=== PATIENT | female | born 1945 | race Caucasian/White ===

== ENCOUNTER 2022-10-30 17:55 | Emergency (ER) | payer MEDICARE ==
[~2022-10-30] VITALS: Ht 157.5 cm; Wt 789.3 kg
[2022-10-30 17:55] VITALS: BP 140/76
[2022-10-30] MEDS ORDERED: TORADOL IM STA (18:15)
[2022-10-30] MEDS ORDERED: TORADOL ONE (18:18)
--- NOTE | 2022-10-30 19:01 | DIREP ---
PROCEDURE:XRAY FOREARM 2 VWS-LT COMPARISON:None. INDICATIONS:pain after trauma FINDINGS: BONES:No acute fracture. The proximal portions of the radius and ulna are not seen in a true AP projection on the attempted AP image of the right forearm. There is seen at and oblique angle. JOINTS:No dislocation. 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 SOFT TISSUES:Severe soft tissue swelling over the dorsal medial aspect of the left hand, wrist and distal forearm. Tiny densities along the surface of the proximal forearm may represent gravel artifact on the skin surface or superficial soft tissues. OTHER:No additional findings. CONCLUSION: 1. Marked soft tissue swelling of the left hand, wrist, and distal forearm. Possible foreign bodies in the superficial soft tissues or skin of the proximal left forearm. 2. No acute bony injury to the left forearm. DJD of the left 1st CMC joint. Dictated by: Smith Mendiola M.D. on 10/30/2022 at 06:55 PM
--- NOTE | 2022-10-30 19:02 | DIREP ---
PROCEDURE:XRAY WRIST MIN 3VW-LT COMPARISON:None. INDICATIONS:pain after trauma FINDINGS: BONES:No fracture. JOINTS:No dislocation. 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 SOFT TISSUES:Marked soft tissue swelling over the dorsal medial aspect of the left hand, wrist, distal part OTHER:No additional findings. CONCLUSION: 1. Marked soft tissue swelling of the left wrist. No evidence of acute bony injury. 2. 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 Dictated by: Smith Mendiola M.D. on 10/30/2022 at 07:00 PM
--- NOTE | 2022-10-30 19:53 | ER.PDOC ---
General Chief Complaint: Extremities Stated Complaint: FALL,EXTREMITIES Time seen by MD: 18:50 Source: patient Exam Limitations: no limitations History of Present Illness Initial Comments Patient is a 77-year-old female with past medical history documented later in this chart who comes in after a fall with a bruise on her left forearm. Patient states that about an hour prior to arrival she tripped and fell landed on her right arm and is on Xarelto and started noticing that she had a significant amount of bruising and started getting nervous. Patient states that she has a sore like pain made worse with movement palpation better with rest denies any other symptoms or concerns at this time. Past Medical History Medical History: cardiac problems, diabetes, GERD, high cholesterol, heart attack, hypertension, pulmonary embolism Surgical History: coronary bypass surgery, Family History Significant Family History: no pertinent family hx Social History Smoking: non-smoker Alcohol Use: none Drug Use: none Reviewed Nursing Reviewed: Vital Signs, Abn. Noted, Nursing Assessment Review of Systems Constitutional: no symptoms reported Eyes: no symptoms reported Ears, Nose, Mouth, Throat: no symptoms reported Respiratory: no symptoms reported Cardiovascular: no symptoms reported Gastrointestinal: no symptoms reported Genitourinary: no symptoms reported Musculoskeletal: joint swelling Skin: change in color Psychiatric/Neurological: no symptoms reported Physical Exam General Appearance: No Apparent Distress, WD/WN Head: Other Eyes: bilateral eye normal inspection Ears, Nose, Mouth, Throat: Hearing Grossly Normal, No Evidence of ENT Injury, No Dental Injury Neck: Non-Tender, Normal Alignment, Nexus criteria neg, Normal Inspection Cardiovascular/Respiratory: Regular Rate, Rhythm, No M/R/G, Normal Peripheral Pulses, No JVD, Normal Breath Sounds, No Respiratory Distress Gastrointestinal: Normal Bowel Sounds, No Organomegaly, No Pulsatile Mass, Non Tender, Soft Back: Normal Inspection, No CVA Tenderness, No Vertebral Tenderness Extremities: Other (Significant hematoma to the left wrist dorsal aspect about 6 cm.) Neurologic/Psychiatric: ham marker II-XII NML as Tested, No Motor/Sensory Deficits, Alert, Normal Mood/Affect, Oriented x 3 Skin: Normal Color, Warm/Dry Results/Orders Results/Orders Orders - GINNA TOBIAS MD Xr Forearm Lt (10/30/22 18:16) Xr Wrist Lt (10/30/22 18:16) Ketorolac Tromethamine (Toradol) (10/30/22 18:15) Ketorolac Tromethamine (Toradol) (10/30/22 18:18) Vital Signs Date Time Temp Pulse Resp B/P (MAP) Pulse Ox O2 Delivery O2 Flow Rate FiO2 10/30/22 17:55 98.1 74 18 140/76 (97) 95 Room Air* 0 21 10/30/22 17:55 98.1 74 18 95 10/30/22 17:55 98.1 74 18 Administered Medications Medications (Trade) Dose Ordered Sig/Sergio Route PRN Reason Start Time Stop Time Status Last Admin Dose Admin Ketorolac Tromethamine (Toradol) 15 mg OT STAT IM 10/30/22 18:15 10/30/22 18:16 DC 10/30/22 19:38 15 MG Progress Progress Patient here with fall and injury to the left forearm need to rule out fracture will obtain x-rays to see if there is any bony abnormalities will provide pain control as necessary as well. This is likely just a hematoma however we will continue to monitor. No need for CT imaging of the head is a very very small patient states that that might have even been from a different fall days ago. 2reassessmentpatient's neuro exam completely normal so feel safe not obtaining the CT head still x-ray shows no bony abnormalities per my read and later confirmed by the radiologist. This is just a hematoma will discharge with follow-up she was understanding when to follow-up and return to the ER as well as her daughter who is present as well. ER DEPART Departure Time of Disposition: 19:52 Disposition: 01 HOME / SELF CARE / HOMELESS Impression: Primary Impression: Hematoma Condition: Stable Patient Instructions: Hematoma Referrals: PIPER SOFIA MD (PCP) PRIMARY CARE PROVIDER Additional Instructions: Follow-up with your primary care provider within 1 week. If you have any new persistent or worsening symptoms or concerns seek medical attention. Duration or Time Spent with Pa: 45 GINNA TOBIAS MD Oct 30, 2022 19:53
== END 2022-10-30 19:57 | disposition home or self-care (01) ==
LOC: ER 17:55
DX: S50.12XA Contusion of left forearm, initial encounter (principal); E11.9 Type 2 diabetes mellitus without complications; I10 Essential (primary) hypertension; K21.9 Gastro-esophageal reflux disease without esophagitis; E78.00 Pure hypercholesterolemia, unspecified; I21.9 Acute myocardial infarction, unspecified; I26.99 Other pulmonary embolism without acute cor pulmonale; Z98.890 Other specified postprocedural states; W01.0XXA Fall on same level from slipping, tripping and stumbling without subsequent striking against object, initial encounter; Y93.89 Activity, other specified; Y92.89 Other specified places as the place of occurrence of the external cause; Y99.8 Other external cause status
CPT/HCPCS: 99284; 96372; 73090; 73110; J1885